=== PATIENT | female | born 1975 | race Caucasian/White ===

== ENCOUNTER 2020-03-09 15:32 | Emergency (ER) | payer OTHER, SELFPAY ==
[2020-03-09 15:33] VITALS: BP 114/70; PULSE 100; RESP 18; TEMP 36.7; O2SAT 98; BMI 47.0
--- NOTE | 2020-03-09 16:03 | HMH.EDUTC ---
[facility] [place] Disposition Clinical Impression: Abscess Disposition: Home, Self-Care Condition on Discharge: Good Instructions: Clindamycin, DI for Skin Abscess Additional Instructions: *Start antibiotic(s) immediately and be sure to take as ordered for the FULL length of time although you may be feeling better or start to see improvement in the next 24-48 hours *Monitor closely. Outlined redness so that you can monitor easier. Follow up immediately for new or worsening symptoms including but not limited to redness, swelling, streaking from site fever or chills. *Warm compress 15 minutes 3-4 times day *Never squeeze or pop these on your own. Seek immediate medical attention next time this occurs *Monitor Temp. Tylenol every 4 hours as needed and ibuprofen every 6 hours as needed (as long as your primary care doctor has told you that it is ok to take both. For fever, aches, pain. ER if no less that 101 despite Tylenol and ibuprofen Follow up with your family doctor/primary care physician in the next 48-72 hours if no improvement Follow up with family doctor in the next 48-72 hours to make sure area is healing and wound culture results to make sure you are on an appropriate antibiotic Over the counter Motrin may help with pain if your doctor has told you that you can take it if you cannot take it then take Tylenol for the pain Straight to ER if any fever chills, or life threatening symptoms Prescriptions: clindamycin HCL [Clindamycin HCl 300mg Cap] 300 mg PO Q8 10 Days #30 cap Transmission Status: Received by [id number] Fluconazole [Diflucan 150mg tab] 150 mg PO DIRECTED #1 tab Transmission Status: Received by [facility] Mupirocin Calcium [Mupirocin 2% Cream 15gm] 1 applicatio TP TID 10 Days #1 tube Transmission Status: Received by [facility] Referrals: Cindy Mccollum MD [Primary Care Provider] - As needed Time of Disposition: 16:07 Medical Decision Making - Kareem Inquiry Pt receiving controlled substance: No Kareem was queried for this patient: No Vital Signs: 03/09/20 15:33 03/09/20 16:11 Temperature 98.1 F 98.1 F Temperature Source Oral Oral Pulse Rate 100 H Pulse Rate [Radial] 100 H Respiratory Rate 18 18 Blood Pressure 114/70 Blood Pressure [Right Arm] 114/70 Blood Pressure Mean [Right Arm] 84 Blood Pressure Source Automatic Cuff Blood Pressure Source [Right Arm] Automatic Cuff Blood Pressure Position Sitting Blood Pressure Position [Right Arm] Sitting 02 Sat by Pulse Oximetry 98 Oxygen Delivery Method Room Air Room Air Orders (Tests/Meds): ORDERS Category Date Time Status Wound Culture and Gram Stain Stat Micro 03/09/20 16:04 Received [facility] [place] HPI - General Stated complaint: Poss abscess under breast Time Seen by Provider: 03/09/20 16:03 Mode of Arrival: Ambulatory Source of Information: Patient Limitations: No Limitations Description of Symptoms (Recalled from Triage Doc. by RN): abcess under left breast HEENT Symptoms (Recalled from RN notes): No Resp Symptoms (Recalled from RN notes): No Skin Symptoms (Recalled from RN notes): Yes MS Symptoms (Recalled from RN notes): No Functional Status (Recalled from RN notes): wnl - History of Present Illness Provider Complaint: Patient states that she has been in [place] for about a week and she noticed red swollen area under her left breast States that she was on her way home today and it busted and she noticed yellowish colored pus coming from it and she knew it was an abscess so she came in to get it checked - Related Data Previous Rx's Medication Instructions Recorded Fluconazole [Diflucan 150mg tab] 150 mg PO DIRECTED #1 tab 03/09/20 Mupirocin Calcium [Mupirocin 2% 1 applicatio TP TID 10 Days #1 tube 03/09/20 Cream 15gm] clindamycin HCL [Clindamycin HCl 300 mg PO Q8 10 Days #30 cap 03/09/20 300mg Cap] Allergies Allergy/AdvReac Type Severity Reaction Status Date / Time Ce
[2020-03-09 16:11] VITALS: BP 114/70; PULSE 100; RESP 18; TEMP 36.7; O2SAT 98
== END 2020-03-09 16:12 | disposition home or self-care (01) ==
PROVIDERS: Emergency Provider Nurse Practitioner; PCP Family Medicine
DX: N61.1 Abscess of the breast and nipple (principal); Z88.8 Allergy status to other drugs, medicaments and biological substances
CPT/HCPCS: 87070; 87077; 87205; 99201